=== PATIENT | female | born 1950 | race American Indian/Alaskan Native ===

== ENCOUNTER 2017-03-23 09:55 | Emergency (ER) | payer OTHER ==
[2017-03-23 10:10] VITALS: BP 154/63
[2017-03-23] MEDS ORDERED: Albuterol/Ipratropium 3.0-0.5 MG/3 ML Neb Soln NEB ONE (10:18)
--- NOTE | 2017-03-23 10:25 | EDM.PDOC ---
{null, ED HPI GENERAL MEDICAL PROBLEM - General Chief Complaint: Respiratory Problem Stated Complaint: CHEST HURTS. CONGESTION Time Seen by Provider: 03/23/17 10:20 Source of Information: Reports: Patient History Limitations: Reports: No Limitations - History of Present Illness INITIAL COMMENTS - FREE TEXT/NARRATIVE: patient comes emergency Department today with complaints of cough and congestion that has been going on for the past week. She was seen at the [facility] on Friday she had an influenza screen as well as some lab work completed for which she does not know her results of. She was started on amoxicillin and cough medicine. She has gotten worse. She is coughing more than she has in the past. She is short of breath. Has fever chills body aches. She has not had any nausea or vomiting. She denies any abdominal pain. She denies chest pain. No production with the cough. Dry hacky cough that is non- productive. No rash. No sinus congestion or throat pain. Headache and pressure in her head. Chest Pain Score (Numeric/FACES): 7 - Related Data Allergies Allergy/AdvReac Type Severity Reaction Status Date / Time doxycycline Allergy Rash Verified 03/23/17 10:01 morphine Allergy Nausea Verified 03/23/17 10:01 Home Meds: Home Meds Diclofenac Sodium [Voltaren 1% Gel] 100 gm TOP DAILY 02/20/14 [History] Letrozole [Letrozole] 2.5 mg PO DAILY 02/20/14 [History] Lisinopril [Lisinopril] 5 mg PO DAILY 02/20/14 [History] Pioglitazone [Actos] 30 mg PO DAILY 02/20/14 [History] metFORMIN [Glucophage] 500 mg PO BID 02/20/14 [History] Aspirin [Halfprin] 81 mg PO DAILY 05/03/15 [History] Calcium Carbonate/Vitamin D3 [Calcium 500 + Vit D 200 Caplet] 1 tab PO BID 05/03 [History] Cetirizine [ZyrTEC] 10 mg PO DAILY 05/03/15 [History] Meloxicam [Meloxicam] 15 mg PO BID 05/03/15 [History] Amoxicillin 500 mg PO BID 03/23/17 [History] guaiFENesin/Codeine Phosphate [Guaifenesin AC Cough Syrup] 10 ml PO ASDIRECTED 05/21/17 [History] Past Medical History HEENT History: Reports: Sinusitis Other HEENT History: WEARS CORRECTIVE LENSES Cardiovascular History: Reports: Hypertension Respiratory History: Reports: None Other Gastrointestinal History: Positive hemoccult stools. 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 Musculoskeletal History: Reports: None Neurological History: Reports: None Psychiatric History: Reports: None Endocrine/Metabolic History: Reports: Diabetes, Type II Hematologic History: Reports: None Immunologic History: Reports: None Oncologic (Cancer) History: Reports: Breast Dermatologic History: Reports: None - Infectious Disease History Infectious Disease History: Reports: None - Past Surgical History Head Surgeries/Procedures: Reports: None Other HEENT Surgeries/Procedures: PERMANETLY FIXED PARTIAL Other Oncologic Surgeries/Procedures: LEFT MASTECTOMY Social & Family History - Family History Family Medical History: Noncontributory - Tobacco Use Smoking Status *Q: Current Every Day Smoker Years of Tobacco use: 20 Packs/Tins Daily: 0.5 Used Tobacco, but Quit: No Second Hand Smoke Exposure: No - Caffeine Use Caffeine Use: Reports: Coffee - Recreational Drug Use Recreational Drug Use: No Drug Use in Last 12 Months: No - Living Situation & Occupation Living situation: Reports: with Family Occupation: Employed ED ROS GENERAL - Review of Systems Review Of Systems: See Below Musculoskeletal: Reports: No Symptoms Neurological: Reports: No Symptoms Psychiatric: Reports: No Symptoms Hematologic/Lymphatic: Reports: No Symptoms ED EXAM, GENERAL - Physical Exam Exam: See Below Exam Limited By: No Limitations General Appearance: Alert, WD/WN, No Apparent Distress Eye Exam: Bilateral Eye: PERRL Ears: Normal External Exam, Normal Canal, Hearing Grossly Normal, Normal TMs Nose: Normal Mucosa, No Blood, Clear Rhinorrhea Throat/Mouth: Normal Inspection, Normal Lips, Normal Teeth, Normal Oropharynx, No Airway Compromise Head: Atraumatic, Normocephalic Neck: Normal Inspection, Supple, Non-Tender Respiratory/Chest: No Respiratory Distress, No Accessory Muscle Use, Chest Non- Tender, Decreased Breath Sounds (right lower base), Rhonchi (right lower base), Wheezing (right lung field) Cardiovascular: Normal Peripheral Pulses, Regular Rate, Rhythm, No Murmur, No Rub Peripheral Pulses: 2+: Radial (L), Radial (R), Posterior Tibial (L), Posterior Tibial (R), Dorsalis Pedis (L), Dorsalis Pedis (R) GI/Abdominal: Normal Bowel Sounds, Soft, Non-Tender, No Organomegaly, No Abnormal Bruit (Female) Exam: Deferred Rectal (Female) Exam: Deferred Back Exam: Normal Inspection, Full Range of Motion Extremities: Normal Inspection, Normal Range of Motion, Non-Tender Neurological: Alert, Oriented Psychiatric: Normal Affect, Normal Mood Skin Exam: Diaphoretic Lymphatic: No Adenopathy Course - Vital Signs Last Recorded V/S: Last Vital Signs Temp 35.9 C 03/23/17 10:04 Pulse 78 03/23/17 10:36 Resp 24 H 03/23/17 10:04 BP 154/63 H 03/23/17 10:04 Pulse Ox 97 03/23/17 10:36 - Orders/Labs/Meds Orders: Active Orders 24 hr Category Date Time Status RT Aerosol Therapy [RC] ASDIRECTED Care 03/23/17 10:18 Active Labs: Laboratory Tests 03/23/17 03/23/17 Range/Units 10:34 10:34 WBC 7.4 (5.0-10.0) 10^3/uL RBC 4.58 (4.2-5.4) 10^6/uL Hgb 13.1 (12.0-16.0) g/dL Hct 39.7 (37.0-47.0) % MCV 86.7 (80-100) fL MCH 28.6 (27.0-34.0) pg MCHC 33.0 (33.0-35.0) g/dL Plt Count 276 (150-450) 10^3/uL Neut % (Auto) 84.1 H (42.2-75.2) % Lymph % (Auto) 6.9 L (20.5-50.1) % [place] % (Auto) 7.0 (2-8) % Eos % (Auto) 1.6 (1.0-3.0) % Baso % (Auto) 0.4 (0.0-1.0) % Sodium 139 (135-145) mmol/L Potassium 3.9 (3.6-5.0) mmol/L Chloride 105 (101-111) mmol/L Carbon Dioxide 26.0 (21.0-31.0) mmol/L Anion Gap 11.9 BUN 14 (7-18) mg/dL Creatinine 0.7 (0.6-1.3) mg/dL Est Cr Clr Drug Dosing 74.01 mL/min Estimated GFR (MDRD) > 60 Glucose 117 H (74-105) mg/dL Calcium 9.1 (8.4-10.2) mg/dl Microbiology 03/23/17 10:17 Influenza Type A Antigen Screen - Final Nasopharyngeal Swab - Nare, Right NEGATIVE INFLUENZA A VIRUS AG Influenza Type B Antigen Screen - Final NEGATIVE INFLUENZA B VIRUS AG Meds: Medications Discontinued Medications Generic Name Dose Route Start Last Admin Trade Name Freq PRN Reason Stop Dose Admin Albuterol/Ipratropium 3 ml 03/23/17 10:18 03/23/17 10:35 Duoneb 3.0-0.5 Mg/3 Ml NEB 03/23/17 10:19 3 ml ONETIME ONE Administration - Radiology Interpretation Free Text/Narrative:: chest x-ray reviewed extemporaneously by myself. There is ? shading on the medial aspect of the right diaphragmatic border NO loss of the right heart border. Radiology reports no acute findings. - Re-Assessments/Exams Free Text/Narrative Re-Assessment/Exam: 03/23/17 11:27 following the nebulizer the patient states her shortness of breath and cough is all but resolved. Respiratory rate down to 16 bpm. Lung sounds clear equal bilaterally without wheezing. Laboratory evaluation is unremarkable. Negative for influenza. Chest x-ray is negative as well per radiology. Treated for bronchitis at this time need to give the amoxicillin more time to work. discharge instructions as below her explained to the patient she was comfortable with this plan her questions were answered. 03/23/17 11:29 Departure - Departure Time of Disposition: 11:12 Disposition: Home, Self-Care 01 Condition: good Clinical Impression: Bronchitis - Discharge Information Instructions: Acute Bronchitis, [id number] Forms: ED Department Discharge Additional Instructions: Tylenol and or ibuprofen as needed for pain fever discomfort. Continue the Amoxicillin, give time to work. Albuterol inhaler 2 puffs every 4 hours with spacer as needed for cough, wheezing SOB. Tessalon Pearls, 1 tab three times a day as needed for cough. Cheratussin 10mls three times aday as needed for cough. Return to the ED if new or worsening symptoms. Recheck with primary care provider in 4-6 days. - My Orders Last 24 Hours: My Active Orders 03/23/17 10:18 RT Aerosol Therapy [RC] ASDIRECTED - Assessment/Plan Last 24 Hours: My Active Orders 03/23/17 10:18 RT Aerosol Therapy [RC] ASDIRECTED Assessment:: Bronchitis Plan: Tylenol and or ibuprofen as needed for pain fever discomfort. Continue the Amoxicillin, give time to work. Albuterol inhaler 2 puffs every 4 hours with spacer as needed for cough, wheezing SOB. Tessalon Pearls, 1 tab three times a day as needed for cough. Cheratussin 10mls three times aday as needed for cough. Return to the ED if new or worsening symptoms. Recheck with primary care provider in 4-6 days. }
[2017-03-23 10:59] LABS: CHLORIDE,CL 105 mmol/L (101-111); SODIUM,NA 139 mmol/L (135-145)
== END 2017-03-23 11:23 | disposition home or self-care (01) ==
LOC: DL.ED 09:55
DX: J40 Bronchitis, not specified as acute or chronic (principal); I10 Essential (primary) hypertension; E11.9 Type 2 diabetes mellitus without complications; F17.210 Nicotine dependence, cigarettes, uncomplicated; Z79.82 Long term (current) use of aspirin; Z79.84 Long term (current) use of oral hypoglycemic drugs; Z79.899 Other long term (current) drug therapy; Z88.5 Allergy status to narcotic agent; Z88.8 Allergy status to other drugs, medicaments and biological substances
CPT/HCPCS: 36415; 71020; 80048; 85025; 87804; 94640; 99284

== ENCOUNTER 2017-04-14 19:36 | Emergency (ER) | payer OTHER ==
[2017-04-14 20:30] LABS: CHLORIDE,CL 103 mmol/L (101-111); SODIUM,NA 140 mmol/L (135-145)
[2017-04-14 20:56] VITALS: BP 144/59
[2017-04-14] MEDS ORDERED: Aspirin 81 MG Tab.Chew PO ONE (20:58)
--- NOTE | 2017-04-15 04:33 | EDM.PDOC ---
ED HPI GENERAL MEDICAL PROBLEM - General Chief Complaint: Neuro Symptoms/Deficits Stated Complaint: SHAKY,FACE PAINFUL,EYE NUMB, [id number] Time Seen by Provider: 04/14/17 19:55 Source of Information: Reports: Patient History Limitations: Reports: No Limitations - History of Present Illness INITIAL COMMENTS - FREE TEXT/NARRATIVE: c/o pain to left side of face with numbness to arm starting t 530pm. No change in vision. Notes no weakness. Prior hx 10 years ago of temporary loss of vision on left side, no prior migraine hx. Diabetic only on metformin, Blood sugars increasing over past week, usually 110's today 180 Location: Reports: Head, Face, Upper Extremity, Left Quality: Reports: Ache Left Face Pain Score (Numeric/FACES): 6 - Related Data Allergies Allergy/AdvReac Type Severity Reaction Status Date / Time doxycycline Allergy Rash Verified 04/14/17 19:59 morphine Allergy Nausea Verified 04/14/17 19:59 Home Meds: Home Meds Diclofenac Sodium [Voltaren 1% Gel] 100 gm TOP DAILY 02/20/14 [History] Letrozole [Letrozole] 2.5 mg PO DAILY 02/20/14 [History] Lisinopril [Lisinopril] 5 mg PO DAILY 02/20/14 [History] Pioglitazone [Actos] 30 mg PO DAILY 02/20/14 [History] metFORMIN [Glucophage] 500 mg PO BID 02/20/14 [History] Aspirin [Halfprin] 81 mg PO DAILY 05/03/15 [History] Calcium Carbonate/Vitamin D3 [Calcium 500 + Vit D 200 Caplet] 1 tab PO BID 05/03 [History] Cetirizine [ZyrTEC] 10 mg PO DAILY 05/03/15 [History] Meloxicam [Meloxicam] 15 mg PO BID 05/03/15 [History] Amoxicillin 500 mg PO BID 03/23/17 [History] guaiFENesin/Codeine Phosphate [Guaifenesin AC Cough Syrup] 10 ml PO ASDIRECTED 03/23/17 [History] Past Medical History HEENT History: Reports: Sinusitis Other HEENT History: WEARS CORRECTIVE LENSES Cardiovascular History: Reports: Hypertension Respiratory History: Reports: None Other Gastrointestinal History: Positive hemoccult stools. 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 Musculoskeletal History: Reports: Fracture Neurological History: Reports: None Psychiatric History: Reports: None Endocrine/Metabolic History: Reports: Diabetes, Type II Hematologic History: Reports: None Immunologic History: Reports: None Oncologic (Cancer) History: Reports: Breast Dermatologic History: Reports: None - Infectious Disease History Infectious Disease History: Reports: None - Past Surgical History Head Surgeries/Procedures: Reports: None Other HEENT Surgeries/Procedures: PERMANETLY FIXED PARTIAL Other Oncologic Surgeries/Procedures: LEFT MASTECTOMY Social & Family History - Family History Family Medical History: Noncontributory - Tobacco Use Smoking Status *Q: Current Some Day Smoker Years of Tobacco use: 50 Packs/Tins Daily: 0.1 Used Tobacco, but Quit: No Second Hand Smoke Exposure: No - Caffeine Use Caffeine Use: Reports: Coffee - Recreational Drug Use Recreational Drug Use: No Drug Use in Last 12 Months: No - Living Situation & Occupation Living situation: Reports: with Family Occupation: Employed ED ROS GENERAL - Review of Systems Review Of Systems: ROS reveals no pertinent complaints other than HPI. ED EXAM, NEURO - Physical Exam Exam: See Below Exam Limited By: No Limitations General Appearance: Alert, Mild Distress Eye Exam: Bilateral Eye: EOMI, Normal Fundi, PERRL Ears: Normal External Exam Nose: Normal Inspection Throat/Mouth: Normal Inspection, Other (slight droop left mouth) Head Exam: Atraumatic, Normocephalic, Facial Tenderness (5th cranial V2 tenderness, slight tearing left eye) Neck: Normal Inspection. No: Carotid Bruit Respiratory/Chest: No Respiratory Distress, Lungs Clear, Normal Breath Sounds Cardiovascular: Normal Peripheral Pulses, Regular Rate, Rhythm, No Edema GI/Abdominal: Normal Bowel Sounds, Soft Neurological: Alert, Normal Mood/Affect, Oriented x 3, Abnormal Motor (weakness left upper and lower, pronator drift on left, abnormal finger to nose with left. ). No: Tremor, Difficulty Walking Back Exam: Normal Inspection Extremities: Normal Inspection Psychiatric: Normal Affect Skin Exam: Warm, Dry, Intact, Normal Color Course - Vital Signs Last Recorded V/S: Last Vital Signs Temp 98.8 F 04/14/17 20:56 Pulse 70 04/14/17 20:56 Resp 16 04/14/17 20:56 BP 144/59 H 04/14/17 20:56 Pulse Ox 100 04/14/17 20:56 - Orders/Labs/Meds Orders: Active Orders 24 hr Category Date Time Status EKG Documentation Completion [RC] URGENT Care 04/14/17 20:06 Active Labs: Laboratory Tests 04/14/17 04/14/17 04/14/17 Range/Units 20:00 20:00 20:00 WBC 5.4 (5.0-10.0) 10^3/uL RBC 4.18 L (4.2-5.4) 10^6/uL Hgb 12.2 (12.0-16.0) g/dL Hct 36.6 L (37.0-47.0) % MCV 87.6 (80-100) fL MCH 29.2 (27.0-34.0) pg MCHC 33.3 (33.0-35.0) g/dL Plt Count 267 (150-450) 10^3/uL Neut % (Auto) 75.4 H (42.2-75.2) % Lymph % (Auto) 15.5 L (20.5-50.1) % [place] % (Auto) 6.3 (2-8) % Eos % (Auto) 2.4 (1.0-3.0) % Baso % (Auto) 0.4 (0.0-1.0) % Sodium 140 (135-145) mmol/L Potassium 3.9 (3.6-5.0) mmol/L Chloride 103 (101-111) mmol/L Carbon Dioxide 26.0 (21.0-31.0) mmol/L Anion Gap 14.9 BUN 20 H (7-18) mg/dL Creatinine 1.0 (0.6-1.3) mg/dL Est Cr Clr Drug Dosing 51.80 mL/min Estimated GFR (MDRD) 55 BUN/Creatinine Ratio 20.00 Glucose 226 H (74-105) mg/dL Calcium 9.1 (8.4-10.2) mg/dl Magnesium 1.5 L (1.8-2.5) mg/dL Total Bilirubin 0.4 (0.2-1.0) mg/dL AST 20 (10-42) IU/L ALT 13 (10-60) IU/L Alkaline Phosphatase 129 H (42-121) IU/L Creatine Kinase 84 (26-174) IU/L Creatine Kinase Index 2.0 (0-2.4) % CK-MB (CK-2) 1.70 (0.4-4.7) ng/mL Troponin I < 0.02 (0.00-0.02) ng/ml C-Reactive Protein < 0.5 (0.0-1.3) mg/dL Total Protein 7.0 (6.7-8.2) g/dl Albumin 4.1 (3.2-5.5) g/dl Globulin 2.9 Albumin/Globulin Ratio 1.41 Urine Color (YELLOW) Urine Appearance (CLEAR) Urine pH (5.0-9.0) Ur Specific [place] (1.005-1.030) Urine Protein (NEGATIVE) Urine Glucose (UA) (NEGATIVE) Urine Ketones (NEGATIVE) Urine Occult Blood (NEGATIVE) Urine Nitrite (NEGATIVE) Urine Bilirubin (NEGATIVE) Urine Urobilinogen (0.2-1.0) mg/dL Ur Leukocyte Esterase (NEGATIVE) Urine RBC /HPF Urine WBC (0-5/HPF) /HPF Ur Epithelial Cells /HPF Urine Bacteria (0-FEW/HPF) /HPF 04/14/17 Range/Units 20:48 WBC (5.0-10.0) 10^3/uL RBC (4.2-5.4) 10^6/uL Hgb (12.0-16.0) g/dL Hct (37.0-47.0) % MCV (80-100) fL MCH (27.0-34.0) pg MCHC (33.0-35.0) g/dL Plt Count (150-450) 10^3/uL Neut % (Auto) (42.2-75.2) % Lymph % (Auto) (20.5-50.1) % [place] % (Auto) (2-8) % Eos % (Auto) (1.0-3.0) % Baso % (Auto) (0.0-1.0) % Sodium (135-145) mmol/L Potassium (3.6-5.0) mmol/L Chloride (101-111) mmol/L Carbon Dioxide (21.0-31.0) mmol/L Anion Gap BUN (7-18) mg/dL Creatinine (0.6-1.3) mg/dL Est Cr Clr Drug Dosing mL/min Estimated GFR (MDRD) BUN/Creatinine Ratio Glucose (74-105) mg/dL Calcium (8.4-10.2) mg/dl Magnesium (1.8-2.5) mg/dL Total Bilirubin (0.2-1.0) mg/dL AST (10-42) IU/L ALT (10-60) IU/L Alkaline Phosphatase (42-121) IU/L Creatine Kinase (26-174) IU/L Creatine Kinase Index (0-2.4) % CK-MB (CK-2) (0.4-4.7) ng/mL Troponin I (0.00-0.02) ng/ml C-Reactive Protein (0.0-1.3) mg/dL Total Protein (6.7-8.2) g/dl Albumin (3.2-5.5) g/dl Globulin Albumin/Globulin Ratio Urine Color Yellow (YELLOW) Urine Appearance Clear (CLEAR) Urine pH 7.0 (5.0-9.0) Ur Specific [place] 1.015 (1.005-1.030) Urine Protein Negative (NEGATIVE) Urine Glucose (UA) 250 H (NEGATIVE) Urine Ketones Negative (NEGATIVE) Urine Occult Blood Negative (NEGATIVE) Urine Nitrite Negative (NEGATIVE) Urine Bilirubin Negative (NEGATIVE) Urine Urobilinogen 0.2 (0.2-1.0) mg/dL Ur Leukocyte Esterase Moderate H (NEGATIVE) Urine RBC 0-5 /HPF Urine WBC 0-5 (0-5/HPF) /HPF Ur Epithelial Cells Few /HPF Urine Bacteria Few (0-FEW/HPF) /HPF Meds: Medications Discontinued Medications Generic Name Dose Route Start Last Admin Trade Name Freq PRN Reason Stop Dose Admin Aspirin 324 mg 04/14/17 20:58 04/14/17 21:08 Aspirin PO 04/14/17 20:59 324 mg ONETIME ONE Administration - Radiology Interpretation Free Text/Narrative:: CT head negative - Re-Assessments/Exams Free Text/Narrative Re-Assessment/Exam: 04/15/17 04:[address] Kwabena Johnson Hospitalist, recommend initiate Aspirin therapy and tranfer patient. Tx via [facility] Departure - Departure Time of Disposition: 19:55 Disposition: DC/Tfer to Acute Hospital 02 Condition: fair Clinical Impression: Left-sided weakness, Facial pain, acute - Discharge Information Forms: ED Department Discharge - My Orders Last 24 Hours: My Active Orders 04/14/17 20:06 EKG Documentation Completion [RC] URGENT - Assessment/Plan Last 24 Hours: My Active Orders 04/14/17 20:06 EKG Documentation Completion [RC] URGENT
--- NOTE | 2017-04-16 13:23 | EKG ---
04/14/2017- KRISTINE PUGA - EKG per my reading shows sinus rhythm with no acute ST changes. [facility] /[id number]
== END 2017-04-14 22:00 ==
LOC: DL.ED 19:36
DX: R51 Headache (principal); R29.898 Other symptoms and signs involving the musculoskeletal system; I10 Essential (primary) hypertension; E11.9 Type 2 diabetes mellitus without complications; F17.210 Nicotine dependence, cigarettes, uncomplicated; Z88.5 Allergy status to narcotic agent; Z88.8 Allergy status to other drugs, medicaments and biological substances; Z79.899 Other long term (current) drug therapy; Z79.82 Long term (current) use of aspirin; Z79.84 Long term (current) use of oral hypoglycemic drugs
CPT/HCPCS: 36415; 70450; 80053; 81001; 82550; 82553; 83735; 84484; 85025; 86140; 93005; 99285; A9270

== ENCOUNTER 2021-02-18 11:26 | Emergency (ER) | payer MEDICARE, OTHER ==
[2021-02-18 11:43] VITALS: BP 137/58; PULSE 87
[2021-02-18] MEDS ORDERED: Acetaminophen 325 MG Tab PO ONE (12:11)
--- NOTE | 2021-02-18 12:11 | EDM.PDOC ---
<Petr Mckeon - Last Filed: 02/18/21 12:06> ED HPI GENERAL MEDICAL PROBLEM - General Chief Complaint: Genitourinary Problem Stated Complaint: lower back pain both sides trouble urinating Time Seen by Provider: 02/18/21 12:06 Source of Information: Reports: Patient History Limitations: Reports: No Limitations - History of Present Illness INITIAL COMMENTS - FREE TEXT/NARRATIVE: Kasie is a 71 year old female that presents to the emergency department for back pain. Her back pain started yesterday morning, it has been continuos since onset. She describes the pain as a constant ache, she rates the pain at a 7/10, she has no radiation of her pain, her right back is worse then left. Pain is located on the lateral right side near her upper lumbar and lower thoracic region. She denies any urinary or stool incontinence, leg weakness, difficulty walking, fevers, or sensation changes in her legs. Of note she was recently treated for a UTI, has finished her antibiotics, currently being treated for a vaginal infection with Flagyl. Onset Date: 02/17/21 Location: Reports: Back Quality: Reports: Ache Severity: Moderate Improves with: Reports: None Worsens with: Reports: None Back Pain Score (Numeric/FACES): 7 - Related Data Allergies Allergy/AdvReac Type Severity Reaction Status Date / Time doxycycline Allergy Rash Verified 04/14/17 19:59 morphine Allergy Nausea Verified 04/14/17 19:59 Home Meds: Home Meds Diclofenac Sodium [Voltaren 1% Gel] 100 gm TOP DAILY 02/20/14 [History] Letrozole 2.5 mg PO DAILY 02/20/14 [History] Pioglitazone [Actos] 30 mg PO DAILY 02/20/14 [History] metFORMIN [Glucophage] 1,000 mg PO BID 02/20/14 [History] Aspirin [Ecotrin EC] 325 mg PO DAILY 03/02/18 [History] Calcium Citrate/Vitamin D3 [Calcium Citrate - Vit D3 Tab] 1 tab PO BID 03/02/18 [History] Fexofenadine HCl 180 mg PO DAILY 03/02/18 [History] Simvastatin [Zocor] 20 mg PO BEDTIME 03/03/18 [History] Doxepin [SINEquan] 10 mg PO BEDTIME 01/01/21 [History] Ferrous Sulfate 325 mg PO BID 01/01/21 [History] Losartan [Cozaar] 25 mg PO DAILY 01/01/21 [History] Tolterodine Tartrate [Detrol LA] 2 mg PO DAILY 01/01/21 [History] metroNIDAZOLE [Metronidazole] 500 mg PO DAILY 02/18/21 [History] Past Medical History HEENT History: Reports: Sinusitis Other HEENT History: WEARS CORRECTIVE LENSES Cardiovascular History: Reports: Hypertension Respiratory History: Reports: None Other Gastrointestinal History: Positive hemoccult stools. 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 Musculoskeletal History: Reports: Fracture Neurological History: Reports: None Psychiatric History: Reports: None Endocrine/Metabolic History: Reports: Diabetes, Type II Hematologic History: Reports: None Immunologic History: Reports: None Oncologic (Cancer) History: Reports: Breast Dermatologic History: Reports: None - Infectious Disease History Infectious Disease History: Reports: None - Past Surgical History Head Surgeries/Procedures: Reports: None Other HEENT Surgeries/Procedures: PERMANETLY FIXED PARTIAL Other Oncologic Surgeries/Procedures: LEFT MASTECTOMY Social & Family History - Family History Family Medical History: No Pertinent Family History - Tobacco Use Tobacco Use Status *Q: Current Every Day Tobacco User Years of Tobacco use: 27 Packs/Tins Daily: 0.5 Used Tobacco, but Quit: No Second Hand Smoke Exposure: No - Caffeine Use Caffeine Use: Reports: Coffee, Tea - Recreational Drug Use Recreational Drug Use: No - Living Situation & Occupation Living situation: Reports: with Family Occupation: Employed ED ROS GENERAL - Review of Systems Review Of Systems: Comprehensive ROS is negative, except as noted in HPI. ED EXAM,LOWER BACK PAIN/INJURY - Physical Exam Exam: See Below Exam Limited By: No Limitations General Appearance: Alert, WD/WN, No Apparent Distress Eye Exam: Bilateral Eye: EOMI, PERRL Ears: Normal External Exam Head: Atraumatic, Normocephalic Neck: Normal Inspection, Non-Tender, Full Range of Motion Respiratory/Chest: No Respiratory Distress, Lungs Clear, Normal Breath Sounds Cardiovascular: Normal Peripheral Pulses, Regular Rate, Rhythm, No Edema GI/Abdominal: Soft, Non-Tender, Other (Negative CVA tenderness ) Back Exam: Normal Inspection. No: Muscle Spasm, Paraspinal Tenderness, Vertebral Tenderness Neurological: Alert, Normal Mood/Affect, Normal Gait, No Motor/Sensory Deficits, Oriented x 3. No: Saddle Anesthesia Departure - Departure Time of Disposition: 12:19 Disposition: Home, Self-Care 01 Condition: Good Clinical Impression: Low back pain Qualifiers: Chronicity: acute Back pain laterality: right Sciatica presence: without sciatica Qualified Code(s): M54.5 - Low back pain - Discharge Information *PRESCRIPTION DRUG MONITORING PROGRAM REVIEWED*: Not Applicable *COPY OF PRESCRIPTION DRUG MONITORING REPORT IN PATIENT DEVIN: Not Applicable Instructions: Acute Back Pain, Adult Additional Instructions: Advised Granby that her low back pain is likely acute due to a strain, can take over the counter Tylenol and ibuprofen as needed, if pain continues she should make an appointment with her primary care physician. Emergency signs and symptoms discussed that would prompt follow-up to the emergency department. Sepsis Event Note (ED) - Evaluation Sepsis Screening Result: No Definite Risk <Christopher Gonzalez - Last Filed: 02/18/21 12:24> Course - Vital Signs Last Recorded V/S: Last Vital Signs Temp 36.5 C 02/18/21 11:42 Pulse 87 02/18/21 11:42 Resp 18 02/18/21 11:42 BP 137/58 L 02/18/21 11:42 Pulse Ox 100 02/18/21 11:42 - Orders/Labs/Meds Orders: Active Orders 24 hr Category Date Time Status CULTURE URINE [RM] Urgent Lab 02/18/21 11:50 Received Labs: Laboratory Tests 02/18/21 Range/Units 11:50 Urine Color Yellow (YELLOW) Urine Appearance Slightly cloudy (CLEAR) Urine pH 6.0 (5.0-9.0) Ur Specific [place] <= 1.005 (1.005-1.030) Urine Protein Negative (NEGATIVE) Urine Glucose (UA) Negative (NEGATIVE) Urine Ketones Negative (NEGATIVE) Urine Occult Blood Negative (NEGATIVE) Urine Nitrite Negative (NEGATIVE) Urine Bilirubin Negative (NEGATIVE) Urine Urobilinogen 0.2 (0.2-1.0) mg/dL Ur Leukocyte Esterase Small H (NEGATIVE) Urine RBC 0-5 /HPF Urine WBC 10-20 H (0-5/HPF) /HPF Ur Epithelial Cells Rare (NOT SEEN) /HPF Urine Bacteria Moderate H (0-FEW/HPF) /HPF Urine Mucus Rare (NOT SEEN) /LPF Meds: Medications Discontinued Medications Generic Name Dose Route Start Last Admin Trade Name Freq PRN Reason Stop Dose Admin Acetaminophen 650 mg 02/18/21 12:11 02/18/21 12:15 Acetaminophen 325 Mg Tab PO 02/18/21 12:12 650 mg NOW ONE Administration - Re-Assessments/Exams Free Text/Narrative Re-Assessment/Exam: 02/18/21 12:24 I have examined the patient. I have discussed findings and treatment plan with the Dr. Mckeon. I agree with the assessment and plan in the following residents note. Sepsis Event Note (ED) - Focused Exam Vital Signs: Vital Signs Temp Pulse Resp BP Pulse Ox 02/18/21 11:42 36.5 C 87 18 137/58 L 100 - My Orders Last 24 Hours: My Active Orders 02/18/21 11:50 CULTURE URINE [RM] Urgent - Assessment/Plan Last 24 Hours: My Active Orders 02/18/21 11:50 CULTURE URINE [RM] Urgent
== END 2021-02-18 12:34 | disposition home or self-care (01) ==
LOC: DL.ED 11:26
DX: M54.5 Low back pain (principal); I10 Essential (primary) hypertension; E11.9 Type 2 diabetes mellitus without complications; Z88.1 Allergy status to other antibiotic agents; Z88.5 Allergy status to narcotic agent; Z79.82 Long term (current) use of aspirin; Z79.84 Long term (current) use of oral hypoglycemic drugs; Z79.899 Other long term (current) drug therapy
CPT/HCPCS: 81001; 87086; 87088; 87186; 99283; A9270

== ENCOUNTER 2021-04-17 22:43 | Emergency (ER) | payer OTHER ==
[2021-04-17 22:55] VITALS: BP 167/74; PULSE 95
--- NOTE | 2021-04-18 00:08 | EDM.PDOC ---
ED HPI GENERAL MEDICAL PROBLEM - General Chief Complaint: General Stated Complaint: BACK PAIN,FACE NUMBNESS, LEFT THIGH PAIN Time Seen by Provider: 04/17/21 23:00 Source of Information: Reports: Patient History Limitations: Reports: No Limitations - History of Present Illness INITIAL COMMENTS - FREE TEXT/NARRATIVE: ED with c/o pain to left upper back , numbness to left leg at front part of thigh, reporting hx neuropathy, face felt numb earlier but absent now. Sx started after going for wsa. Was seen in [facility] ED on Friday for same and was in clinic today also. Back pain improved. Has had no chest pain. No fever. No weakness. Left Upper Back Pain Score (Numeric/FACES): 5 - Related Data Allergies Allergy/AdvReac Type Severity Reaction Status Date / Time doxycycline Allergy Rash Verified 04/17/21 22:55 morphine Allergy Nausea Verified 04/17/21 22:55 Home Meds: Home Meds Diclofenac Sodium [Voltaren 1% Gel] 100 gm TOP DAILY 02/20/14 [History] Letrozole 2.5 mg PO DAILY 02/20/14 [History] Pioglitazone [Actos] 30 mg PO DAILY 02/20/14 [History] metFORMIN [Glucophage] 1,000 mg PO BID 02/20/14 [History] Aspirin [Ecotrin EC] 325 mg PO DAILY 03/02/18 [History] Calcium Citrate/Vitamin D3 [Calcium Citrate - Vit D3 Tab] 1 tab PO BID 03/02/18 [History] Fexofenadine HCl 180 mg PO DAILY 03/02/18 [History] Simvastatin [Zocor] 20 mg PO BEDTIME 03/03/18 [History] Doxepin [SINEquan] 10 mg PO BEDTIME 01/01/21 [History] Ferrous Sulfate 325 mg PO BID 01/01/21 [History] Losartan [Cozaar] 25 mg PO DAILY 01/01/21 [History] Tolterodine Tartrate [Detrol LA] 2 mg PO DAILY 01/01/21 [History] metroNIDAZOLE [Metronidazole] 500 mg PO BID 02/18/21 [History] Past Medical History HEENT History: Reports: Sinusitis Other HEENT History: WEARS CORRECTIVE LENSES Cardiovascular History: Reports: Hypertension Respiratory History: Reports: None Other Gastrointestinal History: Positive hemoccult stools. 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 Musculoskeletal History: Reports: Fracture Neurological History: Reports: None Psychiatric History: Reports: None Endocrine/Metabolic History: Reports: Diabetes, Type II Hematologic History: Reports: None Immunologic History: Reports: None Oncologic (Cancer) History: Reports: Breast Dermatologic History: Reports: None - Infectious Disease History Infectious Disease History: Reports: None - Past Surgical History Head Surgeries/Procedures: Reports: None Other HEENT Surgeries/Procedures: PERMANETLY FIXED PARTIAL Other Oncologic Surgeries/Procedures: LEFT MASTECTOMY Social & Family History - Family History Family Medical History: No Pertinent Family History - Tobacco Use Tobacco Use Status *Q: Current Every Day Tobacco User Years of Tobacco use: 25 Packs/Tins Daily: 0.2 Second Hand Smoke Exposure: Yes - Caffeine Use Caffeine Use: Reports: Coffee, Tea - Recreational Drug Use Recreational Drug Use: No - Living Situation & Occupation Living situation: Reports: with Family Occupation: Employed ED ROS GENERAL - Review of Systems Review Of Systems: Comprehensive ROS is negative, except as noted in HPI. ED EXAM, GENERAL - Physical Exam Exam: See Below Exam Limited By: No Limitations General Appearance: Alert, No Apparent Distress Eye Exam: Bilateral Eye: EOMI, PERRL (4mm) Ears: Normal External Exam, Hearing Grossly Normal Nose: Normal Inspection Throat/Mouth: Normal Inspection Head: Atraumatic, Normocephalic Neck: Normal Inspection Respiratory/Chest: No Respiratory Distress Cardiovascular: Normal Peripheral Pulses, Regular Rate, Rhythm GI/Abdominal: Normal Bowel Sounds Extremities: Normal Inspection, Normal Range of Motion. No: Lino's Sign, Limited Range of Motion Neurological: Alert, Oriented, CN II-XII Intact, Normal Cognition, Normal Gait, No Motor/Sensory Deficits. No: Abnormal Reflexes Psychiatric: Normal Affect, Anxious Skin Exam: Warm, Intact, Normal Color Course - Vital Signs Last Recorded V/S: Last Vital Signs Temp 97.8 F 04/17/21 22:50 Pulse 95 04/17/21 22:50 Resp 18 04/17/21 22:50 BP 167/74 H 04/17/21 22:50 Pulse Ox 98 04/17/21 22:50 Departure - Departure Time of Disposition: 00:05 Disposition: Home, Self-Care 01 Condition: Good Clinical Impression: Pain - Discharge Information *PRESCRIPTION DRUG MONITORING PROGRAM REVIEWED*: No *COPY OF PRESCRIPTION DRUG MONITORING REPORT IN PATIENT DEVIN: No Instructions: Pain Without a Known Cause Forms: ED Department Discharge Additional Instructions: tylenol 500mg every 4 hours as needed clinic follow up as needed maintain hydration in warm weather Sepsis Event Note (ED) - Evaluation Sepsis Screening Result: No Definite Risk
== END 2021-04-18 00:15 | disposition home or self-care (01) ==
LOC: DL.ED 22:43
DX: M54.6 Pain in thoracic spine (principal); E11.9 Type 2 diabetes mellitus without complications; I10 Essential (primary) hypertension; Z88.1 Allergy status to other antibiotic agents; Z88.6 Allergy status to analgesic agent
CPT/HCPCS: 99282; 99283

== ENCOUNTER 2021-09-19 07:49 | Day surgery (SDC) | payer OTHER ==
[2021-09-19] MEDS ORDERED: Sodium Chloride 0.9% 10 ML Syringe IV ONE (07:50)
[2021-09-19] MEDS ORDERED: Dexamethasone 4 MG/ML SDV IV ONE (07:50)
[2021-09-19] MEDS ORDERED: Midazolam 1 MG/ML 2 ML SDV IV ONE (07:50)
[2021-09-19] MEDS ORDERED: Acetaminophen 325 MG Tab PO PRN (08:30)
[2021-09-19] MEDS ORDERED: Tobramycin 0.3% Ophth Drops 5 ML Bottle EYELF ONE (08:30)
[2021-09-19] MEDS ORDERED: Ondansetron 4 MG/2 ML SDV IVPUSH PRN (08:30)
[2021-09-19] MEDS ORDERED: Acetaminophen/Codeine 300-30 MG Tab PO PRN (08:30)
[2021-09-19] MEDS: Proparacaine 0.5% Ophth Soln 15 ML Bottle EYELF ONE (09:01)
[2021-09-19] MEDS: Moxifloxacin 0.5% Ophth Soln 3 ML Bottle EYELF ONE (09:02)
[2021-09-19] MEDS: Povidone-Iodine 5% Sterile Ophth Soln 30 ML Bottle EYELF ONE ×2 (09:02→10:26)
[2021-09-19] MEDS: Tropicamide 1% Ophth Soln 15 ML Bottle EYELF ONE (09:03)
[2021-09-19] MEDS: Phenylephrine 10% Ophth Soln 5 ML Bot EYELF ONE (09:04)
[2021-09-19] MEDS: Timolol Maleate 0.5% Ophth Soln 5 ML Bottle EYELF ONE (09:05)
[2021-09-19] MEDS: Cataract Ophth Solution EYELF ONE (09:08)
[2021-09-19] MEDS: Sodium Chloride 0.9% 10 ML Syringe FLUSH PRN (09:21)
[2021-09-19] MEDS: Dexamethasone/Neomycin/Polymyxin B Ophth Oint 3.5 GM Tube EYELF ONE (10:26)
[2021-09-19] MEDS: Tetracaine HCl/PF 0.5% 4 ML Bottle EYELF ONE (10:26)
[2021-09-19] MEDS: Apraclonidine 0.5% Ophth Soln 5 ML Bot EYELF ONE ×2 (10:27→10:29)
[2021-09-19] MEDS: Lidocaine 1% 30 ML SDV ONE (10:28)
[2021-09-19] MEDS: Balanced Salt Solution Ophth Irrig 500 ML Bottle IOCULAR ONE (10:28)
[2021-09-19] MEDS: Vancomycin 500 MG SDV EYELF ONE (10:29)
[2021-09-19] MEDS: Chondroitin Sulfate/Hyaluronate Sodium Ophth Inj 0.75 ML Syringe EYELF ONE (10:29)
[2021-09-19 11:23] VITALS: BP 131/46; PULSE 50
--- NOTE | 2021-09-20 07:23 | OR ---
DATE: 09/19/2021 PREOPERATIVE DIAGNOSIS: Visually significant mixed cataract, left eye. POSTOPERATIVE DIAGNOSIS: Visually significant mixed cataract, left eye. PROCEDURE: Extracapsular cataract extraction with intraocular lens implant, left eye. ANESTHESIA: Topical/local MAC. COMPLICATIONS: None. INDICATION: Ms. Rosas was seen in the clinic with complaints of blurred vision. Examination revealed visually significant mixed cataract. She has difficulty seeing books, magazines, newspapers, pill bottles, difficulty seeing fine print. She saw her regular statistics intern, Dr. Alexandre. Dr. Alexandre was not able to improve her vision with a change in glasses. I have explained options, offered cataract surgery, and I explained risks including the potential for infection, retinal detachment, loss of vision, need for additional surgery, amongst others. We have discussed implant options. She has requested a mono focal implant. She understands that she may need glasses for some activities following surgery. OPERATIVE DESCRIPTION: After informed consent was obtained and the risks, benefits, and alternatives were explained, the patient was brought to the operative suite and topical anesthesia was administered. The patient was then prepped and draped in the sterile fashion and attention was placed on the left eye. A sterile lid speculum was placed into the left eye to allow operative exposure. A full-thickness paracentesis was made in the temporal portion of the operative eye. Preservative-free lidocaine 0.1 mL was injected into the anterior chamber followed by viscoelastic. A full-thickness corneal incision was then made into the anterior chamber. A bent needle cystotome was used to create a small maxx in the anterior capsule. The capsulorrhexis forceps was then used to create a 360-degree curvilinear capsulorrhexis. The nucleus was then removed using a phacoemulsification handpiece and the remaining cortical material was then removed with irrigation and aspiration handpiece. Following removal of the cortical material, the capsular bag was then inspected and noted to be free of any holes or tears. Viscoelastic was then injected into the capsular bag and the intraocular lens was inserted into the capsular bag. The viscoelastic material was then removed from both the anterior and posterior chambers and from behind the IOL. The lens and capsular bag were then reinspected. The IOL was well centered and the capsular bag intact. The wound and paracentesis sites were inspected and hydrated with balanced saline solution. Both were found to be self- sealing. The intraocular pressure was assessed digitally and found to be within normal range. A good red reflex was noted at the completion of the procedure. No complications occurred during the operation. At the completion of the procedure, Maxitrol, Voltaren, and Iopidine drops were placed into the operative eye. A sterile eye shield was placed over the operative eye and the patient was transported to the postoperative recovery area having tolerated the procedure well. Postoperative instructions were given along with a postoperative appointment. The patient was advised to call with any questions or concerns. [facility] /[id number]
== END 2021-09-19 11:31 | disposition home or self-care (01) ==
LOC: DL.SDS 07:49
PROVIDERS: ATTEND Ophthalmology
DX: E11.36 Type 2 diabetes mellitus with diabetic cataract (principal); H25.12 Age-related nuclear cataract, left eye; E11.40 Type 2 diabetes mellitus with diabetic neuropathy, unspecified; E11.42 Type 2 diabetes mellitus with diabetic polyneuropathy; F17.210 Nicotine dependence, cigarettes, uncomplicated; M19.012 Primary osteoarthritis, left shoulder; E78.5 Hyperlipidemia, unspecified; E11.22 Type 2 diabetes mellitus with diabetic chronic kidney disease; J44.9 Chronic obstructive pulmonary disease, unspecified; I12.9 Hypertensive chronic kidney disease with stage 1 through stage 4 chronic kidney disease, or unspecified chronic kidney disease; N18.30 Chronic kidney disease, stage 3 unspecified; Z79.82 Long term (current) use of aspirin; Z79.84 Long term (current) use of oral hypoglycemic drugs; Z86.73 Personal history of transient ischemic attack (TIA), and cerebral infarction without residual deficits; Z88.5 Allergy status to narcotic agent; Z88.8 Allergy status to other drugs, medicaments and biological substances
CPT/HCPCS: 00142; A9270-GY; J1100; J2250; J3370; V2632

== ENCOUNTER 2021-10-17 09:03 | Day surgery (SDC) | payer OTHER ==
[2021-10-17] MEDS ORDERED: Dexamethasone 4 MG/ML SDV IV ONE (09:04)
[2021-10-17] MEDS ORDERED: Sodium Chloride 0.9% 10 ML Syringe IV ONE (09:04)
[2021-10-17] MEDS ORDERED: Midazolam 1 MG/ML 2 ML SDV IV ONE (09:04)
[2021-10-17] MEDS ORDERED: Acetaminophen 325 MG Tab PO PRN (09:15)
[2021-10-17] MEDS ORDERED: Tropicamide 1% Ophth Soln 15 ML Bottle EYERT ONE (09:15)
[2021-10-17] MEDS ORDERED: Sodium Chloride 0.9% 10 ML Syringe FLUSH PRN (09:15)
[2021-10-17] MEDS ORDERED: Cataract Ophth Solution EYERT ONE (09:15)
[2021-10-17] MEDS ORDERED: Povidone-Iodine 5% Sterile Ophth Soln 30 ML Bottle EYERT ONE ×2 (09:15→10:38)
[2021-10-17] MEDS ORDERED: Tobramycin 0.3% Ophth Drops 5 ML Bottle EYERT SCH (09:15)
[2021-10-17] MEDS ORDERED: Proparacaine 0.5% Ophth Soln 15 ML Bottle EYERT ONE (09:15)
[2021-10-17] MEDS ORDERED: Ondansetron 4 MG/2 ML SDV IVPUSH PRN (09:15)
[2021-10-17] MEDS ORDERED: Timolol Maleate 0.5% Ophth Soln 5 ML Bottle EYERT ONE (09:15)
[2021-10-17] MEDS ORDERED: Phenylephrine 10% Ophth Soln 5 ML Bot EYERT ONE (09:15)
[2021-10-17] MEDS ORDERED: Moxifloxacin 0.5% Ophth Soln 3 ML Bottle EYERT ONE (09:15)
[2021-10-17 09:35] VITALS: BP 110/45; PULSE 70
[2021-10-17] MEDS ORDERED: Tetracaine HCl/PF 0.5% 4 ML Bottle EYERT ONE (10:37)
[2021-10-17] MEDS ORDERED: Lidocaine 1% 30 ML SDV ONE (10:37)
[2021-10-17] MEDS ORDERED: Apraclonidine 0.5% Ophth Soln 5 ML Bot EYERT ONE (10:38)
[2021-10-17] MEDS ORDERED: Balanced Salt Solution Ophth Irrig 500 ML Bottle IOCULAR ONE (10:40)
[2021-10-17] MEDS ORDERED: Dexamethasone/Neomycin/Polymyxin B Ophth Oint 3.5 GM Tube EYERT ONE (10:40)
[2021-10-17] MEDS ORDERED: Diclofenac Sodium 0.1% Ophth Soln 5 ML Bottle EYERT ONE (10:40)
[2021-10-17] MEDS ORDERED: Vancomycin 500 MG SDV EYERT ONE (10:41)
[2021-10-17] MEDS ORDERED: Chondroitin Sulfate/Hyaluronate Sodium Ophth Inj 0.75 ML Syringe EYERT ONE (10:41)
--- NOTE | 2021-10-18 08:39 | OR ---
DATE: 10/17/2021 PREOPERATIVE DIAGNOSIS: Visually significant mixed cataract, right eye. POSTOPERATIVE DIAGNOSIS: Visually significant mixed cataract, right eye. PROCEDURE: Extracapsular cataract extraction with intraocular lens implant, right eye. ANESTHESIA: Topical/local MAC. COMPLICATIONS: None. INDICATION: Ms. Rosas was seen in the clinic. She is unhappy with her vision. She has difficulty with multiple activities of daily living, difficulty reading, seeing books, magazines newspapers, pill bottles. She saw her regular program paraprofessional, Dr. Alexandre. Dr. Alexandre was not able to improve her vision and meet her visual needs with a change in glasses. I explained options, offered cataract surgery, and I explained risks including the potential for infection, retinal detachment, loss of vision, need for additional surgery, amongst others. We discussed implant options. She has requested a monofocal implant. She is comfortable wearing glasses following surgery if necessary. OPERATIVE DESCRIPTION: After informed consent was obtained and the risks, benefits, and alternatives were explained, the patient was brought to the operative suite and topical anesthesia was administered. The patient was then prepped and draped in the sterile fashion and attention was placed on the right eye. A sterile lid speculum was placed into the right eye to allow operative exposure. A full-thickness paracentesis was made in the temporal portion of the operative eye. Preservative-free lidocaine 0.1 mL was injected into the anterior chamber followed by viscoelastic. A full-thickness corneal incision was then made into the anterior chamber. A bent needle cystotome was used to create a small maxx in the anterior capsule. The capsulorrhexis forceps was then used to create a 360-degree curvilinear capsulorrhexis. The nucleus was then removed using a phacoemulsification handpiece and the remaining cortical material was then removed with irrigation and aspiration handpiece. Following removal of the cortical material, the capsular bag was then inspected and noted to be free of any holes or tears. Viscoelastic was then injected into the capsular bag and the intraocular lens was inserted into the capsular bag. The viscoelastic material was then removed from both the anterior and posterior chambers and from behind the IOL. The lens and capsular bag were then reinspected. The IOL was well centered and the capsular bag intact. The wound and paracentesis sites were inspected and hydrated with balanced saline solution. Both were found to be self- sealing. The intraocular pressure was assessed digitally and found to be within normal range. A good red reflex was noted at the completion of the procedure. No complications occurred during the operation. At the completion of the procedure, Maxitrol, Voltaren, and Iopidine drops were placed into the operative eye. A sterile eye shield was placed over the operative eye and the patient was transported to the postoperative recovery area having tolerated the procedure well. Postoperative instructions were given along with a postoperative appointment. The patient was advised to call with any questions or concerns. No complications occurred. [facility] /[id number]
== END 2021-10-17 11:52 | disposition home or self-care (01) ==
LOC: DL.SDS 09:03
PROVIDERS: ATTEND Ophthalmology
DX: E11.36 Type 2 diabetes mellitus with diabetic cataract (principal); H26.8 Other specified cataract; D64.9 Anemia, unspecified; E11.42 Type 2 diabetes mellitus with diabetic polyneuropathy; M19.012 Primary osteoarthritis, left shoulder; F17.210 Nicotine dependence, cigarettes, uncomplicated; M16.11 Unilateral primary osteoarthritis, right hip; K52.9 Noninfective gastroenteritis and colitis, unspecified; Z86.73 Personal history of transient ischemic attack (TIA), and cerebral infarction without residual deficits; J45.909 Unspecified asthma, uncomplicated; E11.22 Type 2 diabetes mellitus with diabetic chronic kidney disease; I12.9 Hypertensive chronic kidney disease with stage 1 through stage 4 chronic kidney disease, or unspecified chronic kidney disease; N18.30 Chronic kidney disease, stage 3 unspecified
CPT/HCPCS: A9270-GY; J1100; J2250; J3370; V2632

== ENCOUNTER 2023-01-08 13:41 | Emergency (ER) | payer OTHER ==
[2023-01-08] MEDS ORDERED: Sodium Chloride 0.9% 10 ML Syringe FLUSH PRN (13:52)
[2023-01-08 14:21] VITALS: BP 165/62; PULSE 69
[2023-01-08 14:58] LABS: ANION GAP 12.8 mEq/L (7-13); CHLORIDE,CL 102 mmol/L (98-107); SODIUM,NA 138 mmol/L (136-145)
[2023-01-08 15:02] LABS: ESTIMATED GFR 67 mL/min (>=60)
== END 2023-01-08 15:24 | disposition home or self-care (01) ==
LOC: DL.ED 13:41
DX: N64.4 Mastodynia (principal); E11.22 Type 2 diabetes mellitus with diabetic chronic kidney disease; I12.9 Hypertensive chronic kidney disease with stage 1 through stage 4 chronic kidney disease, or unspecified chronic kidney disease; N18.9 Chronic kidney disease, unspecified; Z88.1 Allergy status to other antibiotic agents; Z88.5 Allergy status to narcotic agent; Z88.8 Allergy status to other drugs, medicaments and biological substances; Z79.899 Other long term (current) drug therapy; Z79.84 Long term (current) use of oral hypoglycemic drugs
CPT/HCPCS: 36415; 71045; 80053; 82150; 83605; 83690; 83735; 84443; 84484; 85025; 86140; 93005; 99285; J3490

== ENCOUNTER 2023-05-18 11:47 | Emergency (ER) | payer OTHER ==
[2023-05-18 12:06] VITALS: BP 139/61; PULSE 83
[2023-05-18 12:18] LABS: BASOPHILS PERCENT AUTO 0.2 % (0.0-1.0); EOSINOPHILS PERCENT AUTO 3.4 % (1.0-3.0); HEMATOCRIT 37.2 % (37.0-47.0); HEMOGLOBIN 12.6 g/dL (12.0-16.0); LYMPHOCYTES PERCENT AUTO 11.3 % (20.5-50.1); MEAN CORPUSCULAR HEMOGLOBIN 30.4 pg (27.0-34.0); MEAN CORPUSCULAR HGB CONC 33.9 g/dL (33.0-35.0); MEAN CORPUSCULAR VOLUME 89.6 fL (80-100); MONOCYTES PERCENT AUTO 6.7 % (2-8); NEUTROPHILS PERCENT AUTO 78.4 % (42.2-75.2); PLATELET COUNT,PLT 308 10^3/uL (150-450); RED BLOOD CELL COUNT 4.15 10^6/uL (4.2-5.4); WHITE BLOOD CELL COUNT,WBC 4.8 10^3/uL (5.0-10.0)
[2023-05-18 12:38] LABS: A/G RATIO 1.2; ALBUMIN 3.7 g/dL (3.4-5.0); ANION GAP 12.1 mEq/L (7-13); BILIRUBIN TOTAL 0.2 mg/dL (0.2-1.0); BUN/CREATININE RATIO 16.3 (No establ ref range); CREATININE 1.04 mg/dL (0.55-1.02); EST CRCL DRUG DOSING (CG) 45.77 mL/min; MAGNESIUM 1.6 mg/dL (1.8-2.4); POTASSIUM,K 4.1 mmol/L (3.5-5.1); PROTEIN TOTAL,TP 6.8 g/dL (6.4-8.2)
[2023-05-18 12:42] LABS: APPEARANCE,URINE CLEAR (CLEAR); BILIRUBIN,URINE NEGATIVE (NEGATIVE); COLOR,URINE YELLOW (YELLOW); GLUCOSE,URINE NEGATIVE (NEGATIVE); KETONES,URINE NEGATIVE (NEGATIVE); LEUKOCYTE ESTERASE,URINE NEGATIVE (NEGATIVE); NITRITE,URINE NEGATIVE (NEGATIVE); OCCULT BLOOD,URINE NEGATIVE (NEGATIVE); PH,URINE 6.5 (5.0-9.0); PROTEIN,URINE NEGATIVE (NEGATIVE); UROBILINOGEN,URINE 0.2 mg/dL (0.2-1.0)
[2023-05-18 12:44] LABS: LACTIC ACID 1.6 mmol/L (0.4-2.0)
[2023-05-18] MEDS: Magnesium Oxide 400 MG Tab PO ONE (14:05)
== END 2023-05-18 14:08 | disposition home or self-care (01) ==
LOC: DL.ED 11:47
DX: R10.11 Right upper quadrant pain (principal); E86.0 Dehydration; E83.42 Hypomagnesemia; E11.22 Type 2 diabetes mellitus with diabetic chronic kidney disease; I12.9 Hypertensive chronic kidney disease with stage 1 through stage 4 chronic kidney disease, or unspecified chronic kidney disease; N18.9 Chronic kidney disease, unspecified; Z88.1 Allergy status to other antibiotic agents; Z88.5 Allergy status to narcotic agent; Z88.8 Allergy status to other drugs, medicaments and biological substances; Z79.84 Long term (current) use of oral hypoglycemic drugs; Z79.899 Other long term (current) drug therapy
CPT/HCPCS: 36415; 74019; 80053; 81003; 83605; 83690; 83735; 85025; 99283; 99284; A9270

== ENCOUNTER 2024-02-29 10:17 | Emergency (ER) | payer OTHER ==
[2024-02-29 10:36] VITALS: BP 126/62; PULSE 84
== END 2024-02-29 11:35 | disposition home or self-care (01) ==
LOC: DL.ED 10:17
DX: J06.9 Acute upper respiratory infection, unspecified (principal); I12.9 Hypertensive chronic kidney disease with stage 1 through stage 4 chronic kidney disease, or unspecified chronic kidney disease; N18.9 Chronic kidney disease, unspecified; E11.40 Type 2 diabetes mellitus with diabetic neuropathy, unspecified; E11.22 Type 2 diabetes mellitus with diabetic chronic kidney disease; Z88.1 Allergy status to other antibiotic agents; Z88.5 Allergy status to narcotic agent; Z79.899 Other long term (current) drug therapy; Z79.84 Long term (current) use of oral hypoglycemic drugs; Z79.82 Long term (current) use of aspirin; Z86.19 Personal history of other infectious and parasitic diseases
CPT/HCPCS: 82947; 99283

== ENCOUNTER 2024-07-18 19:41 | Emergency (ER) | payer MEDICARE, OTHER ==
[2024-07-18 21:22] VITALS: BP 130/66; PULSE 117
[2024-07-18] MEDS: Sodium Chloride 0.9% 1,000 ML IV ONE (21:41)
[2024-07-18 21:52] LABS: BASOPHILS PERCENT AUTO 0.1 % (0.0-1.0); EOSINOPHILS PERCENT AUTO 0.1 % (1.0-3.0); HEMOGLOBIN 12.7 g/dL (12.0-16.0); LYMPHOCYTES PERCENT AUTO 1.6 % (20.5-50.1); MEAN CORPUSCULAR HEMOGLOBIN 29.1 pg (27.0-34.0); MEAN CORPUSCULAR HGB CONC 33.4 g/dL (33.0-35.0); NEUTROPHILS PERCENT AUTO 89.2 % (42.2-75.2); PLATELET COUNT,PLT 234 10^3/uL (150-450); RED BLOOD CELL COUNT 4.37 10^6/uL (4.2-5.4); WHITE BLOOD CELL COUNT,WBC 18.9 10^3/uL (5.0-10.0)
[2024-07-18] MEDS: Acetaminophen 500 MG Tab PO ONE (22:04)
[2024-07-18 22:12] LABS: ALBUMIN 2.9 g/dL (3.4-5.0); BILIRUBIN TOTAL 0.5 mg/dL (0.2-1.0); BUN/CREATININE RATIO 18.5 (No establ ref range); CALCIUM 8.7 mg/dL (8.5-10.1); CREATININE 1.62 mg/dL (0.55-1.02); EST CRCL DRUG DOSING (CG) 28.95 mL/min; PROTEIN TOTAL,TP 6.8 g/dL (6.4-8.2)
[2024-07-18 22:17] LABS: A/G RATIO 0.74
[2024-07-18 22:18] LABS: LACTIC ACID 0.9 mmol/L (0.4-2.0)
[2024-07-18 22:43] LABS: APPEARANCE,URINE SLIGHTLY CLOUDY (CLEAR); BILIRUBIN,URINE NEGATIVE (NEGATIVE); COLOR,URINE YELLOW (YELLOW); GLUCOSE,URINE 500 (NEGATIVE); KETONES,URINE 15 (NEGATIVE); LEUKOCYTE ESTERASE,URINE TRACE (NEGATIVE); NITRITE,URINE POSITIVE (NEGATIVE); OCCULT BLOOD,URINE MODERATE (NEGATIVE); PROTEIN,URINE 100 (NEGATIVE); UROBILINOGEN,URINE 0.2 mg/dL (0.2-1.0)
[2024-07-18] MEDS: cefTRIAXone 1 GM Vial IVPUSH ONE (22:54)
[2024-07-18 22:56] LABS: BACTERIA,URINE MANY /HPF (0-FEW/HPF); EPITHELIAL CELLS,URINE FEW /HPF (NOT SEEN); RBC,URINE 0-5 /HPF (0-5); WBC,URINE 40-50 /HPF (0-5/HPF)
== END 2024-07-18 23:06 | disposition home or self-care (01) ==
LOC: DL.ED 19:41
DX: J10.1 Influenza due to other identified influenza virus with other respiratory manifestations (principal); N39.0 Urinary tract infection, site not specified; I12.9 Hypertensive chronic kidney disease with stage 1 through stage 4 chronic kidney disease, or unspecified chronic kidney disease; E11.22 Type 2 diabetes mellitus with diabetic chronic kidney disease; N18.9 Chronic kidney disease, unspecified; E11.40 Type 2 diabetes mellitus with diabetic neuropathy, unspecified; Z90.49 Acquired absence of other specified parts of digestive tract; Z79.82 Long term (current) use of aspirin; Z79.84 Long term (current) use of oral hypoglycemic drugs; Z79.899 Other long term (current) drug therapy; Z88.1 Allergy status to other antibiotic agents; Z88.6 Allergy status to analgesic agent; Z88.5 Allergy status to narcotic agent
CPT/HCPCS: 36415; 71045; 80053; 81001; 83605; 83690; 85025; 87040; 87086; 87088; 87186; 87804; 96361; 96374; 99283-25; 99284; A9270-GY; J0696; J7030; U0002

== ENCOUNTER 2024-08-22 21:16 | Emergency (ER) | payer MEDICARE, OTHER ==
[2024-08-22 21:58] VITALS: BP 152/68; PULSE 80
[2024-08-22] MEDS ORDERED: Sodium Chloride 0.9% 10 ML Syringe FLUSH PRN (22:21)
[2024-08-22 22:40] LABS: BASOPHILS PERCENT AUTO 0.2 % (0.0-1.0); EOSINOPHILS PERCENT AUTO 2.9 % (1.0-3.0); HEMATOCRIT 39.5 % (37.0-47.0); HEMOGLOBIN 12.9 g/dL (12.0-16.0); LYMPHOCYTES PERCENT AUTO 12.1 % (20.5-50.1); MEAN CORPUSCULAR HEMOGLOBIN 29.5 pg (27.0-34.0); MEAN CORPUSCULAR HGB CONC 32.7 g/dL (33.0-35.0); MEAN CORPUSCULAR VOLUME 90.4 fL (80-100); NEUTROPHILS PERCENT AUTO 75.8 % (42.2-75.2); PLATELET COUNT,PLT 330 10^3/uL (150-450); RED BLOOD CELL COUNT 4.37 10^6/uL (4.2-5.4); WHITE BLOOD CELL COUNT,WBC 5.5 10^3/uL (5.0-10.0)
[2024-08-22 23:00] LABS: A/G RATIO 1.1; ALBUMIN 3.4 g/dL (3.4-5.0); ANION GAP 12.6 mEq/L (7-13); BILIRUBIN TOTAL 0.3 mg/dL (0.2-1.0); BUN/CREATININE RATIO 16.4 (No establ ref range); CALCIUM 9.4 mg/dL (8.5-10.1); CREATININE 1.16 mg/dL (0.55-1.02); EST CRCL DRUG DOSING (CG) 40.43 mL/min; MAGNESIUM 1.5 mg/dL (1.8-2.4); POTASSIUM,K 3.6 mmol/L (3.5-5.1); PROTEIN TOTAL,TP 6.6 g/dL (6.4-8.2)
[2024-08-22 23:01] LABS: PROTHROMBIN TIME 9.9 SEC (9.0-12.0); PTT,PARTIAL THROMBOPLSTIN TIME 24.9 SEC (22.0-34.0)
[2024-08-22] MEDS: Magnesium Sulfate/Water Premix 2 GM in Premix Bag 1 BAG IV ONE (23:53)
[2024-08-23 00:17] LABS: APPEARANCE,URINE CLEAR (CLEAR); BILIRUBIN,URINE NEGATIVE (NEGATIVE); COLOR,URINE YELLOW (YELLOW); GLUCOSE,URINE 500 (NEGATIVE); KETONES,URINE NEGATIVE (NEGATIVE); LEUKOCYTE ESTERASE,URINE NEGATIVE (NEGATIVE); NITRITE,URINE NEGATIVE (NEGATIVE); OCCULT BLOOD,URINE TRACE-INTACT (NEGATIVE); PROTEIN,URINE NEGATIVE (NEGATIVE); UROBILINOGEN,URINE 0.2 mg/dL (0.2-1.0)
[2024-08-23 00:42] LABS: BACTERIA,URINE FEW /HPF (0-FEW/HPF); EPITHELIAL CELLS,URINE FEW /HPF (NOT SEEN); MUCUS,URINE FEW /LPF (NOT SEEN); WBC,URINE 0-5 /HPF (0-5/HPF)
== END 2024-08-23 01:32 | disposition home or self-care (01) ==
LOC: DL.ED 21:16
DX: E83.42 Hypomagnesemia (principal); R20.2 Paresthesia of skin; I12.9 Hypertensive chronic kidney disease with stage 1 through stage 4 chronic kidney disease, or unspecified chronic kidney disease; N18.9 Chronic kidney disease, unspecified; E11.40 Type 2 diabetes mellitus with diabetic neuropathy, unspecified; E11.22 Type 2 diabetes mellitus with diabetic chronic kidney disease; F17.210 Nicotine dependence, cigarettes, uncomplicated; Z90.710 Acquired absence of both cervix and uterus; Z79.84 Long term (current) use of oral hypoglycemic drugs; Z79.899 Other long term (current) drug therapy; Z79.82 Long term (current) use of aspirin; Z88.1 Allergy status to other antibiotic agents; Z88.5 Allergy status to narcotic agent; Z88.8 Allergy status to other drugs, medicaments and biological substances
CPT/HCPCS: 36415; 72040; 80053; 81001; 83735; 85025; 85610; 85730; 96365; 99284; J3475

== ENCOUNTER 2024-10-14 14:00 | Emergency (ER) | payer MEDICARE, OTHER ==
[~2024-10-14 14:00] MED LIST: Sodium Chloride 0.9% 10 ML Syringe FLUSH PRN
[2024-10-14] MEDS: Lactated Ringers 2,000 ML IV SCH (14:14)
[2024-10-14] MEDS: Acetaminophen 325 MG Tab PO ONE (14:14)
[2024-10-14] MEDS: cefTRIAXone 2 GM Vial IV ONE (14:15)
[2024-10-14 14:18] LABS: EOSINOPHILS PERCENT AUTO 0.3 % (1.0-3.0); HEMATOCRIT 39.7 % (37.0-47.0); HEMOGLOBIN 13.3 g/dL (12.0-16.0); LYMPHOCYTES PERCENT AUTO 2.5 % (20.5-50.1); MEAN CORPUSCULAR HEMOGLOBIN 29.8 pg (27.0-34.0); MEAN CORPUSCULAR HGB CONC 33.5 g/dL (33.0-35.0); MONOCYTES PERCENT AUTO 2.4 % (2-8); NEUTROPHILS PERCENT AUTO 94.8 % (42.2-75.2); PLATELET COUNT,PLT 161 10^3/uL (150-450); RED BLOOD CELL COUNT 4.46 10^6/uL (4.2-5.4); WHITE BLOOD CELL COUNT,WBC 6.3 10^3/uL (5.0-10.0)
[2024-10-14 14:22] LABS: APPEARANCE,URINE CLOUDY (CLEAR); BILIRUBIN,URINE NEGATIVE (NEGATIVE); COLOR,URINE YELLOW (YELLOW); GLUCOSE,URINE 500 (NEGATIVE); KETONES,URINE NEGATIVE (NEGATIVE); LEUKOCYTE ESTERASE,URINE LARGE (NEGATIVE); NITRITE,URINE NEGATIVE (NEGATIVE); OCCULT BLOOD,URINE MODERATE (NEGATIVE); PH,URINE 5.5 (5.0-9.0); PROTEIN,URINE 100 (NEGATIVE); UROBILINOGEN,URINE 0.2 mg/dL (0.2-1.0)
[2024-10-14 14:32] LABS: PROTHROMBIN TIME 10.3 SEC (9.0-12.0)
[2024-10-14 14:34] LABS: BACTERIA,URINE MANY /HPF (0-FEW/HPF); EPITHELIAL CELLS,URINE FEW /HPF (NOT SEEN); RBC,URINE 0-5 /HPF (0-5); WBC,URINE PACKED /HPF (0-5/HPF)
[2024-10-14 14:39] LABS: ALBUMIN 2.7 g/dL (3.4-5.0); ANION GAP 18.1 mEq/L (7-13); BILIRUBIN TOTAL 0.8 mg/dL (0.2-1.0); BUN/CREATININE RATIO 15.8 (No establ ref range); CALCIUM 9.2 mg/dL (8.5-10.1); CREATININE 2.47 mg/dL (0.55-1.02); EST CRCL DRUG DOSING (CG) 18.99 mL/min; POTASSIUM,K 4.1 mmol/L (3.5-5.1); PROTEIN TOTAL,TP 6.4 g/dL (6.4-8.2)
[2024-10-14 14:41] LABS: A/G RATIO 0.73
[2024-10-14 14:43] LABS: LACTIC ACID 4.1 mmol/L (0.4-2.0)
[2024-10-14] MEDS: Lactated Ringers 1,000 ML IV ONE (16:20)
[2024-10-14] MEDS: Aspirin 81 MG Tab.Chew PO ONE (17:02)
[2024-10-14] MEDS ORDERED: Albumin 5% 250 ML IV SCH (17:15)
[2024-10-14 18:06] VITALS: BP 95/75; PULSE 72
== END 2024-10-14 18:26 ==
LOC: DL.ED 14:00
DX: A41.9 Sepsis, unspecified organism (principal); R65.21 Severe sepsis with septic shock; I12.9 Hypertensive chronic kidney disease with stage 1 through stage 4 chronic kidney disease, or unspecified chronic kidney disease; N18.9 Chronic kidney disease, unspecified; E11.40 Type 2 diabetes mellitus with diabetic neuropathy, unspecified; E11.22 Type 2 diabetes mellitus with diabetic chronic kidney disease; Z90.710 Acquired absence of both cervix and uterus; Z79.899 Other long term (current) drug therapy; Z79.84 Long term (current) use of oral hypoglycemic drugs; Z79.82 Long term (current) use of aspirin; Z88.1 Allergy status to other antibiotic agents; Z88.5 Allergy status to narcotic agent; Z88.8 Allergy status to other drugs, medicaments and biological substances
CPT/HCPCS: 36415; 71045; 80053; 81001; 83605; 84145; 84484; 85025; 85610; 87040; 93005; 96361; 96374; 99285; A9270; J0696; J7120

== ENCOUNTER 2024-11-17 15:57 | Emergency (ER) | payer OTHER ==
[2024-11-17] MEDS: Sodium Chloride 0.9% 1,000 ML IV ONE (16:00)
[2024-11-17] MEDS: cefTRIAXone 2 GM Vial IVPUSH ONE (16:16)
[2024-11-17 16:24] LABS: BASOPHILS PERCENT AUTO 0.2 % (0.0-1.0); EOSINOPHILS PERCENT AUTO 0.4 % (1.0-3.0); HEMATOCRIT 40.5 % (37.0-47.0); HEMOGLOBIN 13.1 g/dL (12.0-16.0); LYMPHOCYTES PERCENT AUTO 5.8 % (20.5-50.1); MEAN CORPUSCULAR HEMOGLOBIN 29.4 pg (27.0-34.0); MEAN CORPUSCULAR HGB CONC 32.3 g/dL (33.0-35.0); MEAN CORPUSCULAR VOLUME 90.8 fL (80-100); MONOCYTES PERCENT AUTO 7.6 % (2-8); PLATELET COUNT,PLT 285 10^3/uL (150-450); RED BLOOD CELL COUNT 4.46 10^6/uL (4.2-5.4); WHITE BLOOD CELL COUNT,WBC 13.1 10^3/uL (5.0-10.0)
[2024-11-17 16:35] LABS: ANION GAP 11.2 mEq/L (7-13); BLOOD UREA NITROGEN,BUN 29 mg/dL (7-18); CALCIUM 9.1 mg/dL (8.5-10.1); CARBON DIOXIDE,CO2 29 mmol/L (21-32); CHLORIDE,CL 100 mmol/L (98-107); CREATININE 1.68 mg/dL (0.55-1.02); GLUCOSE RANDOM 136 mg/dL (70-99); POTASSIUM,K 4.2 mmol/L (3.5-5.1); SODIUM,NA 136 mmol/L (136-145)
[2024-11-17 16:38] LABS: ESTIMATED GFR 32 mL/min (>=60)
[2024-11-17 16:48] LABS: APPEARANCE,URINE SLIGHTLY CLOUDY (CLEAR); BILIRUBIN,URINE NEGATIVE (NEGATIVE); COLOR,URINE YELLOW (YELLOW); GLUCOSE,URINE 500 (NEGATIVE); KETONES,URINE NEGATIVE (NEGATIVE); LEUKOCYTE ESTERASE,URINE TRACE (NEGATIVE); NITRITE,URINE POSITIVE (NEGATIVE); OCCULT BLOOD,URINE TRACE-INTACT (NEGATIVE); PROTEIN,URINE NEGATIVE (NEGATIVE); UROBILINOGEN,URINE 0.2 mg/dL (0.2-1.0)
[2024-11-17 16:57] LABS: WBC,URINE 30-40 /HPF (0-5/HPF)
[2024-11-17 16:58] VITALS: BP 174/69; PULSE 95
[2024-11-17 16:58] LABS: BACTERIA,URINE MANY /HPF (0-FEW/HPF); EPITHELIAL CELLS,URINE FEW /HPF (NOT SEEN)
== END 2024-11-17 17:05 | disposition home or self-care (01) ==
LOC: DL.ED 15:57
DX: N17.9 Acute kidney failure, unspecified (principal); N30.00 Acute cystitis without hematuria; I12.9 Hypertensive chronic kidney disease with stage 1 through stage 4 chronic kidney disease, or unspecified chronic kidney disease; N18.9 Chronic kidney disease, unspecified; E11.22 Type 2 diabetes mellitus with diabetic chronic kidney disease; Z86.73 Personal history of transient ischemic attack (TIA), and cerebral infarction without residual deficits; E11.40 Type 2 diabetes mellitus with diabetic neuropathy, unspecified; Z88.5 Allergy status to narcotic agent; Z88.8 Allergy status to other drugs, medicaments and biological substances; Z79.899 Other long term (current) drug therapy; Z79.84 Long term (current) use of oral hypoglycemic drugs; Z79.82 Long term (current) use of aspirin; Z90.710 Acquired absence of both cervix and uterus
CPT/HCPCS: 36415; 80048; 81001; 85025; 87086; 87088; 87186; 96374; 99283-25; 99284; J0696; J7030

== ENCOUNTER 2025-02-08 14:27 | Emergency (ER) | payer OTHER ==
[2025-02-08 14:48] LABS: BASOPHILS PERCENT AUTO 0.4 % (0.0-1.0); EOSINOPHILS PERCENT AUTO 2.7 % (1.0-3.0); HEMATOCRIT 40.9 % (37.0-47.0); HEMOGLOBIN 13.3 g/dL (12.0-16.0); LYMPHOCYTES PERCENT AUTO 14.9 % (20.5-50.1); MEAN CORPUSCULAR HEMOGLOBIN 28.9 pg (27.0-34.0); MEAN CORPUSCULAR HGB CONC 32.5 g/dL (33.0-35.0); MEAN CORPUSCULAR VOLUME 88.9 fL (80-100); MONOCYTES PERCENT AUTO 7.8 % (2-8); NEUTROPHILS PERCENT AUTO 74.2 % (42.2-75.2); PLATELET COUNT,PLT 296 10^3/uL (150-450); WHITE BLOOD CELL COUNT,WBC 5.5 10^3/uL (5.0-10.0)
[2025-02-08 15:08] LABS: INR 0.9 (0.9-1.2); PROTHROMBIN TIME 9.5 SEC (9.0-12.0); PTT,PARTIAL THROMBOPLSTIN TIME 25.1 SEC (22.0-34.0)
[2025-02-08 15:16] LABS: A/G RATIO 1.1; ALBUMIN 3.8 g/dL (3.4-5.0); ANION GAP 12.6 mEq/L (7-13); BILIRUBIN TOTAL 0.2 mg/dL (0.2-1.0); BUN/CREATININE RATIO 13.9 (No establ ref range); CALCIUM 9.8 mg/dL (8.5-10.1); CREATININE 1.22 mg/dL (0.55-1.02); EST CRCL DRUG DOSING (CG) 37.87 mL/min; MAGNESIUM 1.8 mg/dL (1.8-2.4); POTASSIUM,K 4.6 mmol/L (3.5-5.1); PROTEIN TOTAL,TP 7.3 g/dL (6.4-8.2); T4 FREE 0.96 ng/dL (0.76-1.46); TSH ULTRASENSITIVE 1.06 uIU/mL (0.36-3.74)
[2025-02-08 15:59] VITALS: BP 141/58; PULSE 74
== END 2025-02-08 16:52 | disposition home or self-care (01) ==
LOC: DL.ED 14:27
DX: R07.89 Other chest pain (principal); I12.9 Hypertensive chronic kidney disease with stage 1 through stage 4 chronic kidney disease, or unspecified chronic kidney disease; E11.40 Type 2 diabetes mellitus with diabetic neuropathy, unspecified; E11.22 Type 2 diabetes mellitus with diabetic chronic kidney disease; M19.90 Unspecified osteoarthritis, unspecified site; N18.9 Chronic kidney disease, unspecified; Z88.8 Allergy status to other drugs, medicaments and biological substances; Z79.899 Other long term (current) drug therapy; Z79.84 Long term (current) use of oral hypoglycemic drugs; Z79.82 Long term (current) use of aspirin; Z90.710 Acquired absence of both cervix and uterus
CPT/HCPCS: 36415; 80053; 83735; 84439; 84443; 84484; 85025; 85610; 85730; 99285

== ENCOUNTER 2025-05-14 12:53 | Emergency (ER) | payer OTHER ==
[2025-05-14 13:48] LABS: BASOPHILS PERCENT AUTO 0.2 % (0.0-1.0); EOSINOPHILS PERCENT AUTO 2.1 % (1.0-3.0); LYMPHOCYTES PERCENT AUTO 10.1 % (20.5-50.1); MONOCYTES PERCENT AUTO 7.1 % (2-8); NEUTROPHILS PERCENT AUTO 80.5 % (42.2-75.2); PLATELET COUNT,PLT 247 10^3/uL (150-450); RED BLOOD CELL COUNT 4.69 10^6/uL (4.2-5.4); WHITE BLOOD CELL COUNT,WBC 6.1 10^3/uL (5.0-10.0)
[2025-05-14 14:09] LABS: A/G RATIO 1.2; ALANINE AMINOTRANSFERASE,ALT 21.0 U/L (14-59); ASPARTATE AMNIOTRANSFERASE,AST 18.0 U/L (15-37); BILIRUBIN TOTAL 0.3 mg/dL (0.2-1.0); BLOOD UREA NITROGEN,BUN 17.0 mg/dL (7-18); CARBON DIOXIDE,CO2 28.0 mmol/L (21-32); CHLORIDE,CL 100.0 mmol/L (98-107); CREATININE 1.06 mg/dL (0.55-1.02); EST CRCL DRUG DOSING (CG) 41.9 mL/min; GLUCOSE RANDOM 127.0 mg/dL (70-99); POTASSIUM,K 4.0 mmol/L (3.5-5.1); PROTEIN TOTAL,TP 7.4 g/dL (6.4-8.2); SODIUM,NA 134.0 mmol/L (136-145)
[2025-05-14 14:10] LABS: ESTIMATED GFR 55.0 mL/min (>=60)
[2025-05-14 14:25] VITALS: BP 141/58; PULSE 60
== END 2025-05-14 14:46 | disposition home or self-care (01) ==
LOC: DL.ED 12:53 → EEVIPCON 12:53 → DL.ED 14:46
DX: M54.6 Pain in thoracic spine (principal); I10 Essential (primary) hypertension; E11.9 Type 2 diabetes mellitus without complications; Z88.5 Allergy status to narcotic agent; Z88.8 Allergy status to other drugs, medicaments and biological substances; Z79.899 Other long term (current) drug therapy; Z79.84 Long term (current) use of oral hypoglycemic drugs; Z90.710 Acquired absence of both cervix and uterus
CPT/HCPCS: 36415; 71046; 80053; 83690; 83735; 84484; 85025; 93005; 93010; 99283; 99285; J7040

== ENCOUNTER 2025-07-30 08:37 | Emergency (ER) | payer OTHER ==
[2025-07-30 08:50] VITALS: PULSE 78
[2025-07-30 08:52] LABS: APPEARANCE,URINE SLIGHTLY CLOUDY (CLEAR); GLUCOSE,URINE 500 (NEGATIVE); OCCULT BLOOD,URINE TRACE-INTACT (NEGATIVE)
[2025-07-30 09:04] LABS: EPITHELIAL CELLS,URINE RARE /HPF (NOT SEEN)
[2025-07-30 09:29] VITALS: BP 146/72
== END 2025-07-30 09:26 | disposition home or self-care (01) ==
LOC: DL.ED 08:37
DX: N30.00 Acute cystitis without hematuria (principal); I12.9 Hypertensive chronic kidney disease with stage 1 through stage 4 chronic kidney disease, or unspecified chronic kidney disease; N18.9 Chronic kidney disease, unspecified; E11.40 Type 2 diabetes mellitus with diabetic neuropathy, unspecified; E11.22 Type 2 diabetes mellitus with diabetic chronic kidney disease; Z86.73 Personal history of transient ischemic attack (TIA), and cerebral infarction without residual deficits; F17.210 Nicotine dependence, cigarettes, uncomplicated; Z88.8 Allergy status to other drugs, medicaments and biological substances; Z88.5 Allergy status to narcotic agent; Z79.899 Other long term (current) drug therapy; Z79.84 Long term (current) use of oral hypoglycemic drugs; Z79.82 Long term (current) use of aspirin
CPT/HCPCS: 81001; 87086; 87088; 87186; 99283